=== PATIENT | male | born 1990 | race Caucasian/White ===

== ENCOUNTER 2019-04-08 21:39 | Emergency (ER) | payer OTHER ==
[2019-04-08] MEDS ORDERED: SODIUM CHLORIDE 0.9% 1,000 ML IV STA (21:43)
--- NOTE | 2019-04-08 21:44 | ED ---
Seizure HPI - General Stated Complaint: Seizure Time Seen by Provider: 04/08/19 21:42 - History of Present Illness Initial Comments: Jose is a 28-year-old alcoholic male who presents the emergency department today from [facility] for evaluation of a possible alcohol withdrawal seizure. Patient reports that this is his fifth stay in [place] in the past 2 years. He reports that on his last readmissions he has had seizures due to alcohol withdrawal on his last day receiving Ativan. Patient states that today was his last day to receive Ativan, he did not get any meds at than normal afternoon vacation administration time. He reports that around 7 PM he began feeling odd he began feeling like he was shaky and his [place]field ds were spasming. He alerted the nurse who told him that his vital signs were normal and there is nothing further to do. He then began feeling worse was sitting in a chair when he began to feel like he was can have a seizure his friend lowered him to the ground place a sweatshirt under his head and patient was told that he then had a seizure. He didn't have any loss of bowel or bladder continence. Patient members waking up with staff around him and being told that he had a seizure. Patient states this is typical for him when he is withdrawing from alcohol. Patient denies any other acute complaints. - Related Data Home Medications Medication Instructions Recorded Confirmed Acetaminophen Tab [Tylenol Tab] 650 mg PO Q4H PRN 04/08/19 04/08/19 Calcium/Magnesium 2 tab PO TID PRN 04/08/19 04/08/19 Chlorpheniramine Maleate 4 mg PO Q4H PRN 04/08/19 04/08/19 [Chlor-Trimeton] Ibuprofen [Motrin] 600 mg PO Q6H PRN 04/08/19 04/08/19 LORazepam [Ativan] 1 mg PO ONCE PRN 04/08/19 04/08/19 Multivitamins, Thera [Multivitamin 1 tab PO DAILY 04/08/19 04/08/19 (formulary)] Ondansetron HCl [Zofran] 8 mg PO Q6H PRN 04/08/19 04/08/19 Ondansetron [Zofran] 4 mg IM Q6H 04/08/19 04/08/19 Thiamine [Vitamin B-1] 100 mg PO DAILY 04/08/19 04/08/19 Tigan 200mg 200 mg IM Q6H PRN 04/08/19 04/08/19 Trimethobenzamide [Tigan] 300 mg PO Q6H PRN 04/08/19 04/08/19 traZODone HCL 50 - 150 mg PO HS 04/08/19 04/08/19 Allergies Allergy/AdvReac Type Severity Reaction Status Date / Time No Known Allergies Allergy Verified 04/08/19 21:53 Review of Systems ROS Statement: Those systems with pertinent positive or pertinent negative responses have been documented in the HPI. ROS Other: All systems not noted in ROS Statement are negative. Past Medical History Additional Past Medical History / Comment(s): Alcohol abuse, alcoholic liver disease General Exam - General Exam Comments Initial Comments: Physical Exam GENERAL: Patient is well-developed and well-nourished. Patient is nontoxic and well- hydrated and is in no distress. HENT: Normocephalic, Atraumatic. EYES: PERRL, EOMI PULMONARY: Unlabored respirations. No audible rales rhonchi or wheezing was noted. CARDIOVASCULAR: There is a regular rate and rhythm without any murmurs gallops or rubs. ABDOMEN: Soft and nontender with normal bowel sounds. SKIN: Skin is clear with no lesions or rashes and otherwise unremarkable. : Deferred NEUROLOGIC: Patient is alert and oriented x3. Moving all extremities spontaneously MUSCULOSKELETAL: Normal extremities with adequate strength and full range of motion. No lower extremity swelling or edema. No calf tenderness. PSYCHIATRIC: Normal psychiatric evaluation. Limitations: no limitations Course Vital Signs 04/08/19 04/08/19 04/08/19 21:45 22:00 22:30 Temperature 98.4 F Pulse Rate 92 99 76 Respiratory 18 20 18 Rate Blood Pressure 119/97 119/97 126/79 O2 Sat by Pulse 98 98 98 Oximetry Medical Decision Making - Medical Decision Making Patient was seen and evaluated history was obtained from the patient This is an alcoholic male with a history of alcohol withdrawal seizures curren tly being treated for alcohol withdrawal [facility]. Patient reports not getting a dose of Ativan this afternoon and subsequently feeling very shaky. Patient recalls his seizure activity. On physical exam the patient is very well-appearing, not tremulous, not hypertensive, had no loss of bowel or bladder continence with the seizure-like activity he reports. I will give the patient a dose of Librium here Labs are reviewed, transaminitis consistent with chronic liver disease of alcohol abuse patient was stable throughout the emergency department stay. No seizure activity. Patient's comfortable with plan for discharge back to [place] this time. - Lab Data Result diagrams: 04/08/19 21:56 04/08/19 21:56 Lab Results 04/08/19 04/08/19 04/08/19 Range/Units 21:56 21:56 22:05 WBC 6.2 (3.8-10.6) k/uL RBC 3.92 L (4.30-5.90) m/uL Hgb 13.9 (13.0-17.5) gm/dL Hct 41.7 (39.0-53.0) % MCV 106.4 H (80.0-100.0) fL MCH 35.4 H (25.0-35.0) pg MCHC 33.3 (31.0-37.0) g/dL RDW 14.6 (11.5-15.5) % Plt Count 201 (150-450) k/uL Neutrophils % 61 % Lymphocytes % 27 % Monocytes % 7 % Eosinophils % 2 % Basophils % 1 % Neutrophils # 3.8 (1.3-7.7) k/uL Lymphocytes # 1.7 (1.0-4.8) k/uL Monocytes # 0.5 (0-1.0) k/uL Eosinophils # 0.1 (0-0.7) k/uL Basophils # 0.1 (0-0.2) k/uL Macrocytosis Moderate Sodium 139 (137-145) mmol/L Potassium 4.8 (3.5-5.1) mmol/L Chloride 104 (98-107) mmol/L Carbon Dioxide 26 (22-30) mmol/L Anion Gap 9 mmol/L BUN 11 (9-20) mg/dL Creatinine 0.67 (0.66-1.25) mg/dL Est GFR (CKD-EPI)AfAm >90 (>60 ml/min/1.73 sqM) Est GFR (CKD-EPI)NonAf >90 (>60 ml/min/1.73 sqM) Glucose 94 (74-99) mg/dL Calcium 10.3 H (8.4-10.2) mg/dL Total Bilirubin 0.8 (0.2-1.3) mg/dL AST 116 H (17-59) U/L ALT 115 H (21-72) U/L Alkaline Phosphatase 200 H (38-126) U/L Total Protein 7.7 (6.3-8.2) g/dL Albumin 4.8 (3.5-5.0) g/dL Urine Color Light Yellow Urine Appearance Clear (Clear) Urine pH 6.5 (5.0-8.0) Ur Specific [place] 1.011 (1.001-1.035) Urine Protein Negative (Negative) Urine Glucose (UA) Negative (Negative) Urine Ketones 1+ H (Negative) Urine Blood Negative (Negative) Urine Nitrite Negative (Negative) Urine Bilirubin Negative (Negative) Urine Urobilinogen <2.0 (<2.0) mg/dL Ur Leukocyte Esterase Negative (Negative) Urine Opiates Screen Not Detected (NotDetected) Ur Oxycodone Screen Not Detected (NotDetected) Urine Methadone Screen Not Detected (NotDetected) Ur Propoxyphene Screen Not Detected (NotDetected) Ur Barbiturates Screen Not Detected (NotDetected) U Tricyclic Antidepress Not Detected (NotDetected) Ur Phencyclidine Scrn Not Detected (NotDetected) Ur Amphetamines Screen Not Detected (NotDetected) U Methamphetamines Scrn Not Detected (NotDetected) U Benzodiazepines Scrn Detected H (NotDetected) Urine Cocaine Screen Not Detected (NotDetected) U Marijuana (THC) Screen Detected H (NotDetected) Disposition Clinical Impression: Alcohol withdrawal Disposition: HOME SELF-CARE Condition: Stable Instructions (If sedation given, give patient instructions): Alcohol Withdrawal (DC) Is patient prescribed a controlled substance at d/c from ED?: No Referrals: None,Stated [Primary Care Provider] - 1-2 days
[2019-04-08 21:53] VITALS: RESP 18
[2019-04-08] MEDS ORDERED: chlordiazePOXIDE 25 MG CAP PO STA (21:58)
[2019-04-08 22:05] LABS: Basophils # (A) 0.1 k/uL (0-0.2); Basophils % (A) 1 %; Eosinophils # (A) 0.1 k/uL (0-0.7); Eosinophils % (A) 2 %; HCT 41.7 % (39.0-53.0); HGB 13.9 gm/dL (13.0-17.5); Lymphocytes # (A) 1.7 k/uL (1.0-4.8); Lymphocytes % (A) 27 %; MCH 35.4 pg (25.0-35.0); MCHC 33.3 g/dL (31.0-37.0); MCV 106.4 fL (80.0-100.0); Macrocytosis Moderate; Mean Platelet Volume 7.9; Monocytes # (A) 0.5 k/uL (0-1.0); Monocytes % (A) 7 %; Neutrophils # (A) 3.8 k/uL (1.3-7.7); Neutrophils % (A) 61 %; Platelet Count 201 k/uL (150-450); RBC 3.92 m/uL (4.30-5.90); RDW 14.6 % (11.5-15.5); WBC 6.2 k/uL (3.8-10.6)
[2019-04-08 22:16] LABS: ALT 115 U/L (21-72); AST 116 U/L (17-59); Albumin 4.8 g/dL (3.5-5.0); Alkaline Phosphatase 200 U/L (38-126); Anion Gap 9 mmol/L; Blood Urea Nitrogen 11 mg/dL (9-20); Calcium 10.3 mg/dL (8.4-10.2); Carbon Dioxide 26 mmol/L (22-30); Chloride 104 mmol/L (98-107); Glucose 94 mg/dL (74-99); Potassium 4.8 mmol/L (3.5-5.1); Sodium 139 mmol/L (137-145); Total Bilirubin 0.8 mg/dL (0.2-1.3); Total Protein 7.7 g/dL (6.3-8.2)
[2019-04-08 22:34] LABS: Appearance,Urine Clear (Clear); Bilirubin,Urine Negative (Negative); Blood,Urine Negative (Negative); Color,Urine Light Yellow; Glucose,Urine (UA) Negative (Negative); Ketones,Urine 1+ (Negative); Leukocyte Esterase,Urine Negative (Negative); Nitrite,Urine Negative (Negative); PH, Urine 6.5 (5.0-8.0); Protein,Urine Negative (Negative); Specific Gravity,Urine 1.011 (1.001-1.035); Urobilinogen,Urine <2.0 mg/dL (<2.0)
[2019-04-08 22:44] LABS: Amphetamine Screen,Urine Not Detected (NotDetected); Barbiturate Screen,Urine Not Detected (NotDetected); Benzodiazepines Screen,Urine Detected (NotDetected); Cocaine Screen,Urine Not Detected (NotDetected); Methadone Screen, Urine Not Detected (NotDetected); Opiate Screen,Urine Not Detected (NotDetected); Oxycodone Screen, Urine Not Detected (NotDetected); Phencyclidine Screen,Urine Not Detected (NotDetected); Tricyclic Antidepressant,Urine Not Detected (NotDetected); Urn Cannabinoid Scrn Detected (NotDetected)
[2019-04-08 23:39] VITALS: BP 125/73; PULSE 81; TEMP 97.8
== END 2019-04-08 23:47 | disposition home or self-care (01) ==
LOC: EC 21:39
DX: F10.239 Alcohol dependence with withdrawal, unspecified (principal); Z79.899 Other long term (current) drug therapy
CPT/HCPCS: 36415; 80053; 80306; 81003; 85025; 93005; 96360; 96361; 99284

== ENCOUNTER 2020-11-08 15:31 | Inpatient (IN) | payer OTHER ==
--- NOTE | 2020-11-08 16:19 | ED ---
Alcohol HPI - General Chief Complaint: Alcohol Stated Complaint: Withdrawl Time Seen by Provider: 11/08/20 15:46 Source: patient Mode of arrival: ambulatory Limitations: no limitations - History of Present Illness Initial Comments: Patient is a 30-year-old male, with history of alcohol abuse, presenting to the emergency department for alcohol intoxication. Patient states he tried to check himself into [facility] today but when they checked his breath alcohol it was over 0.4, so they sent him into the ER and states when he is more sober he can be checked in. Patient states that when he left [facility] he did go home and drink more vodka. He states he usually drinks about a pint of vodka a day. He denies any other drug use, he smokes about half a pack a day. He denies any chest pain or shortness of breath, no abdominal pain and no nausea or vomiting at this time. Patient has a boot on his left foot secondary to a fracture of his left foot x 1 month ago. He denies any suicidal or homicidal thoughts. Patient has no further complaints at this time. Upon arrival to the ER, he has tachycardia, otherwise vitals are normal. - Related Data Home Medications Medication Instructions Recorded Confirmed Thiamine [Vitamin B-1] 100 mg PO DAILY 04/08/19 11/08/20 Folic Acid 1 mg PO DAILY 11/08/20 11/08/20 Ibuprofen [Motrin] 600 mg PO Q6H PRN 11/08/20 11/08/20 Ondansetron HCl [Zofran] 4 mg PO Q8H PRN 11/08/20 11/08/20 levETIRAcetam [Keppra] 1,000 mg PO BID 11/08/20 11/08/20 Allergies Allergy/AdvReac Type Severity Reaction Status Date / Time No Known Allergies Allergy Verified 11/08/20 18:06 Review of Systems ROS Statement: Those systems with pertinent positive or pertinent negative responses have been documented in the HPI. ROS Other: All systems not noted in ROS Statement are negative. Past Medical History Additional Past Medical History / Comment(s): Alcohol abuse, alcoholic liver disease History of Any Multi-Drug Resistant Organisms: None Reported Past Surgical History: Orthopedic Surgery Past Psychological History: Anxiety, Depression Smoking Status: Current every day smoker Past Alcohol Use History: Abuse, Daily, Heavy Past Drug Use History: Marijuana General Exam - General Exam Comments Initial Comments: GENERAL: Patient is nontoxic and in no acute distress, he appears intoxicated. HEAD: Atraumatic, normocephalic. EYES: Pupils equal round and reactive to light, extraocular movements intact, sclera anicteric, conjunctiva are normal. Eyelids were unremarkable. ENT: TMs normal, nares patent, oropharynx clear without exudates. Moist mucous mem branes. NECK: Normal range of motion, supple without lymphadenopathy or JVD. LUNGS: Unlabored respirations. Breath sounds clear to auscultation bilaterally and equal. No wheezes rales or rhonchi. HEART: Regular rate and rhythm without murmurs, rubs or gallops. ABDOMEN: Soft, nontender, normoactive bowel sounds. No guarding, no rebound. No masses appreciated. : Deferred MUSCULOSKELETAL: Patient has a boot on the left foot secondary to a heel fracture 1 month. Normal extremities with adequate strength and normal range of motion, no pitting or edema. No clubbing or cyanosis. NEUROLOGICAL: Patient is alert and oriented x 3. Motor and sensory are also intact. Cranial nerves II through XII grossly intact. Symmetrical smile. Normal speech, normal gait. PSYCH: Normal mood, normal affect. Appears intoxicated. SKIN: Warm, Dry, normal turgor, no rashes or lesions noted. Limitations: no limitations Course Vital Signs 11/08/20 11/08/20 15:33 18:54 Temperature 98.4 F Pulse Rate 130 H 89 Respiratory 18 18 Rate Blood Pressure 123/77 132/86 O2 Sat by Pulse 97 99 Oximetry Medical Decision Making - Medical Decision Making Patient is a 30-year-old male here for alcohol intoxication. He went to check in at [facility] today and was turned away secondary to being over the limit. He did go home after leaving [place] and drink more alcohol before arriving to the ER. He has tachycardia upon arrival, rest of vitals are normal. Appeared to be highly intoxicated. He is accompanied by his fiance. Patient's labs are stable, his urine tox screen is positive for benzos and m arijuana. His serum alcohol is 414. Patient does have history of seizures, he states he's also be on Keppra however does not take this regularly. He states he was told not to take it when he was drinking so he barely ever takes it. Patient will be admitted, accepted by Dr. Mckenzie. [facility] protocol in place. Case discussed with Dr. Blackmon. - Lab Data Result diagrams: 11/08/20 16:20 11/08/20 16:20 Lab Results 11/08/20 11/08/20 11/08/20 Range/Units 16:20 16:20 16:20 WBC 6.2 (3.8-10.6) k/uL RBC 4.18 L (4.30-5.90) m/uL Hgb 14.9 (13.0-17.5) gm/dL Hct 44.1 (39.0-53.0) % MCV 105.5 H (80.0-100.0) fL MCH 35.6 H (25.0-35.0) pg MCHC 33.8 (31.0-37.0) g/dL RDW 13.4 (11.5-15.5) % Plt Count 470 H (150-450) k/uL MPV 6.4 Neutrophils % 41 % Lymphocytes % 47 % Monocytes % 6 % Eosinophils % 1 % Basophils % 2 % Neutrophils # 2.5 (1.3-7.7) k/uL Lymphocytes # 2.9 (1.0-4.8) k/uL Monocytes # 0.3 (0-1.0) k/uL Eosinophils # 0.1 (0-0.7) k/uL Basophils # 0.2 (0-0.2) k/uL Macrocytosis Slight Sodium 145 (137-145) mmol/L Potassium 4.2 (3.5-5.1) mmol/L Chloride 104 (98-107) mmol/L Carbon Dioxide 24 (22-30) mmol/L Anion Gap 17 mmol/L BUN 6 L (9-20) mg/dL Creatinine 0.70 (0.66-1.25) mg/dL Est GFR (CKD-EPI)AfAm >90 (>60 ml/min/1.73 sqM) Est GFR (CKD-EPI)NonAf >90 (>60 ml/min/1.73 sqM) Glucose 153 H (74-99) mg/dL Calcium 9.8 (8.4-10.2) mg/dL Total Bilirubin 0.6 (0.2-1.3) mg/dL AST 76 H (17-59) U/L ALT 43 (4-49) U/L Alkaline Phosphatase 184 H (38-126) U/L Total Protein 8.7 H (6.3-8.2) g/dL Albumin 5.1 H (3.5-5.0) g/dL Urine Opiates Screen Not Detected (NotDetected) Ur Oxycodone Screen Not Detected (NotDetected) Urine Methadone Screen Not Detected (NotDetected) Ur Propoxyphene Screen Not Detected (NotDetected) Ur Barbiturates Screen Not Detected (NotDetected) U Tricyclic Antidepress Not Detected (NotDetected) Ur Phencyclidine Scrn Not Detected (NotDetected) Ur Amphetamines Screen Not Detected (NotDetected) U Methamphetamines Scrn Not Detected (NotDetected) U Benzodiazepines Scrn Detected H (NotDetected) Urine Cocaine Screen Not Detected (NotDetected) U Marijuana (THC) Screen Detected H (NotDetected) Serum Alcohol 414 H* mg/dL Disposition Clinical Impression: Alcoholic intoxication Disposition: ADMITTED IP TO [facility] Condition: Stable Is patient prescribed a controlled substance at d/c from ED?: No Decision Date: 11/08/20 Decision Time: 17:31
[2020-11-08 16:43] LABS: Basophils # (A) 0.2 k/uL (0-0.2); Basophils % (A) 2 %; Eosinophils # (A) 0.1 k/uL (0-0.7); Eosinophils % (A) 1 %; HCT 44.1 % (39.0-53.0); HGB 14.9 gm/dL (13.0-17.5); Lymphocytes # (A) 2.9 k/uL (1.0-4.8); Lymphocytes % (A) 47 %; MCH 35.6 pg (25.0-35.0); MCHC 33.8 g/dL (31.0-37.0); MCV 105.5 fL (80.0-100.0); Macrocytosis Slight; Mean Platelet Volume 6.4; Monocytes # (A) 0.3 k/uL (0-1.0); Monocytes % (A) 6 %; Neutrophils # (A) 2.5 k/uL (1.3-7.7); Neutrophils % (A) 41 %; Platelet Count 470 k/uL (150-450); RBC 4.18 m/uL (4.30-5.90); RDW 13.4 % (11.5-15.5); WBC 6.2 k/uL (3.8-10.6)
[2020-11-08] MEDS ORDERED: IBUPROFEN 600 MG TAB PO PRN (16:50)
[2020-11-08 16:52] LABS: Amphetamine Screen,Urine Not Detected (NotDetected); Barbiturate Screen,Urine Not Detected (NotDetected); Benzodiazepines Screen,Urine Detected (NotDetected); Cocaine Screen,Urine Not Detected (NotDetected); Methadone Screen, Urine Not Detected (NotDetected); Opiate Screen,Urine Not Detected (NotDetected); Oxycodone Screen, Urine Not Detected (NotDetected); Phencyclidine Screen,Urine Not Detected (NotDetected); Tricyclic Antidepressant,Urine Not Detected (NotDetected); Urn Cannabinoid Scrn Detected (NotDetected)
[2020-11-08 16:53] LABS: ALT 43 U/L (4-49); AST 76 U/L (17-59); African American GFR (CKD) >90 (>60 ml/min/1.73 sqM); Albumin 5.1 g/dL (3.5-5.0); Alkaline Phosphatase 184 U/L (38-126); Anion Gap 17 mmol/L; Blood Urea Nitrogen 6 mg/dL (9-20); Calcium 9.8 mg/dL (8.4-10.2); Carbon Dioxide 24 mmol/L (22-30); Chloride 104 mmol/L (98-107); Glucose 153 mg/dL (74-99); Non-African American GFR(CKD) >90 (>60 ml/min/1.73 sqM); Potassium 4.2 mmol/L (3.5-5.1); Sodium 145 mmol/L (137-145); Total Bilirubin 0.6 mg/dL (0.2-1.3); Total Protein 8.7 g/dL (6.3-8.2)
[2020-11-08 17:21] LABS: Alcohol 414 mg/dL
[2020-11-08] MEDS ORDERED: LORazepam 2 MG/ML INJ IV PRN ×3 (17:27)
[2020-11-08] MEDS ORDERED: THIAMINE 100 MG/ML 2 ML VIAL IM STA (17:27)
[2020-11-08] MEDS ORDERED: NALOXONE 0.4 MG/ML 1 ML VIAL IV PRN ×2 (17:29)
[2020-11-08] MEDS ORDERED: PROMETHAZINE 25 MG TAB PO PRN (17:29)
[2020-11-08] MEDS ORDERED: PROCHLORPERAZINE 5 MG TAB PO PRN (17:29)
[2020-11-08] MEDS ORDERED: ONDANSETRON 4 MG/2 ML VIAL IVP PRN (17:29)
[2020-11-08] MEDS: SODIUM CHLORIDE 0.9% 1,000 ML IV SCH (18:00)
[2020-11-08] MEDS ORDERED: ONDANSETRON ODT 4 MG TAB PO STA (18:11)
[2020-11-08] MEDS ORDERED: LORazepam 1 MG TAB PO STA (18:13)
--- NOTE | 2020-11-08 18:29 | P.HPIM ---
History of Present Illness H&P Date: 11/08/20 Chief Complaint: alcohol withdrawal 30 year old man with alcohol abuse disorder, hx of seizures related to ZULEIMA, marijuana use presented with alcohol intoxication requesting detox. Patient was in communication with [facility] for rehab, but he was intoxicated and was advised that he would not be admitted for rehab until he was sober, so he returned home and drank more alcohol prior to presenting to the ER with request for detox. Patient currently reports anxiety, tremulousness, chills, nausea. Denies chest pain, palps, fevers, abdominal pain, dysuria, dyschezia, rash. Review of Systems All Systems reviewed and pertinent positives and negatives listed in HPI, all other symptoms are negative. Past Medical History Additional Past Medical History / Comment(s): Alcohol abuse, alcoholic liver disease History of Any Multi-Drug Resistant Organisms: None Reported Past Surgical History: Orthopedic Surgery Past Psychological History: Anxiety, Depression Smoking Status: Current every day smoker Past Alcohol Use History: Abuse, Daily, Heavy Past Drug Use History: Marijuana Medications and Allergies Home Medications Medication Instructions Recorded Confirmed Type Thiamine [Vitamin B-1] 100 mg PO DAILY 04/08/19 11/08/20 History Folic Acid 1 mg PO DAILY 11/08/20 11/08/20 History Ibuprofen [Motrin] 600 mg PO Q6H PRN 11/08/20 11/08/20 History Ondansetron HCl [Zofran] 4 mg PO Q8H PRN 11/08/20 11/08/20 History levETIRAcetam [Keppra] 1,000 mg PO BID 11/08/20 11/08/20 History Allergies Allergy/AdvReac Type Severity Reaction Status Date / Time No Known Allergies Allergy Verified 11/08/20 18:06 Physical Exam Osteopathic Statement: *. No significant issues noted on an osteopathic structural exam other than those noted in the History and Physical/Consult. Vitals: Vital Signs Temp Pulse Resp BP Pulse Ox 11/08/20 15:33 98.4 F 130 H 18 123/77 97 Intake and Output 11/08/20 11/08/20 11/08/20 06:59 14:59 22:59 Other: Weight 70.307 kg Gen: awake, alert HEENT: moist mucous membranes, good hearing acuity, normocephalic, atraumatic Resp: breathing comfortably without accessory muscle use CVS: perfusing all extremities well GI: ND, NTTP : No SPT, no CVAT, no roberts catheter MSK: left leg in cast and boot, no clubbing, no pitting edema Neuro: non-focal, no sensory deficits, +tremulous Psych: cooperative, euthymic mood Results CBC & Chem 7: 11/08/20 16:20 12 16:20 Labs: Abnormal Lab Results - Last 24 Hours (Table) 11/08/20 11/08/20 11/08/20 Range/Units 16:20 16:20 16:20 RBC 4.18 L (4.30-5.90) m/uL MCV 105.5 H (80.0-100.0) fL MCH 35.6 H (25.0-35.0) pg Plt Count 470 H (150-450) k/uL BUN 6 L (9-20) mg/dL Glucose 153 H (74-99) mg/dL AST 76 H (17-59) U/L Alkaline Phosphatase 184 H (38-126) U/L Total Protein 8.7 H (6.3-8.2) g/dL Albumin 5.1 H (3.5-5.0) g/dL U Benzodiazepines Scrn Detected H (NotDetected) U Marijuana (THC) Screen Detected H (NotDetected) Serum Alcohol 414 H* mg/dL Assessment and Plan Assessment: 1. Alcohol Withdrawal Syndrome 2. Alcohol Intoxication 3. Alcohol Abuse Disorder 4. Marijuana Use 5. History of Seizures 6. Left Foot Fracture 30 year old man with AUD, marijuana use, Hx of seizures presented for ZULEIMA. Plan: - admit to observation, tele - CIWA + Ativan PRN - nausea control - regular diet - thiamine/folate/MVI - tylenol PRN for pain control - continue home meds including keppra Full Code Patient to discharge to [facility] in the morning.
[2020-11-09] MEDS: SODIUM CHLORIDE 0.9% 1,000 ML IV SCH ×4 (03:01→20:12)
[2020-11-09] MEDS: ONDANSETRON 4 MG/2 ML VIAL IVP PRN ×2 (05:58→16:45)
[2020-11-09 07:35] LABS: Basophils # (A) 0.1 k/uL (0-0.2); Basophils % (A) 1 %; Eosinophils # (A) 0.2 k/uL (0-0.7); Eosinophils % (A) 3 %; HCT 40.2 % (39.0-53.0); HGB 13.6 gm/dL (13.0-17.5); Lymphocytes # (A) 1.8 k/uL (1.0-4.8); Lymphocytes % (A) 36 %; MCH 35.7 pg (25.0-35.0); MCHC 33.8 g/dL (31.0-37.0); MCV 105.8 fL (80.0-100.0); Macrocytosis Slight; Mean Platelet Volume 6.3; Monocytes # (A) 0.4 k/uL (0-1.0); Monocytes % (A) 8 %; Neutrophils # (A) 2.4 k/uL (1.3-7.7); Neutrophils % (A) 50 %; Platelet Count 378 k/uL (150-450); WBC 4.9 k/uL (3.8-10.6)
[2020-11-09] MEDS: THIAMINE 100 MG TAB PO SCH ×2 (08:41→16:45)
[2020-11-09 11:00] LABS: African American GFR (CKD) 144.7 (60.0-200.0); Anion Gap 6.7 mmol/L (4.00-12.00); BUN/Creat Ratio 11.43 Ratio (12.00-20.00); Calcium 9.3 mg/dL (8.7-10.3); Carbon Dioxide 29.3 mmol/L (21.6-31.8); Magnesium 1.5 mg/dL (1.5-2.4); Non-African American GFR(CKD) 124.9 (60.0-200.0)
--- NOTE | 2020-11-09 11:18 | P.PN ---
Subjective Progress Note Date: 11/09/20 Pt seen at bedside today, resting comfortably. Rec'd 2mg of ativan this morning prior to my visit with good response. Objective - Vital Signs Vital signs: Vital Signs Temp 98.0 F 11/09/20 08:00 Pulse 81 11/09/20 08:00 Resp 18 11/09/20 08:00 BP 135/81 11/09/20 08:00 Pulse Ox 99 11/09/20 08:00 Intake & Output 11/08/20 11/09/20 11/09/20 18:59 06:59 18:59 Intake Total 200 Balance 200 Weight 70.307 kg 70.307 kg Intake: Oral 200 Other: Voiding Method Toilet Toilet # Voids 0 0 - Exam Gen: awake, alert HEENT: moist mucous membranes, good hearing acuity, normocephalic, atraumatic Resp: breathing comfortably without accessory muscle use CVS: perfusing all extremities well GI: ND, NTTP : No SPT, no CVAT, no roberts catheter MSK: left leg in cast and boot, no clubbing, no pitting edema Neuro: non-focal, no sensory deficits, +tremulous Psych: cooperative, euthymic mood - Labs CBC & Chem 7: 11/09/20 07:13 11/09/20 07:13 Labs: Abnormal Lab Results - Last 24 Hours (Table) 11/08/20 11/08/20 11/08/20 Range/Units 16:20 16:20 16:20 RBC 4.18 L (4.30-5.90) m/uL MCV 105.5 H (80.0-100.0) fL MCH 35.6 H (25.0-35.0) pg Plt Count 470 H (150-450) k/uL BUN 6 L (9-20) mg/dL BUN/Creatinine Ratio (12.00-20.00) Ratio Glucose 153 H (74-99) mg/dL AST 76 H (17-59) U/L Alkaline Phosphatase 184 H (38-126) U/L Total Protein 8.7 H (6.3-8.2) g/dL Albumin 5.1 H (3.5-5.0) g/dL U Benzodiazepines Scrn Detected H (NotDetected) U Marijuana (THC) Screen Detected H (NotDetected) Serum Alcohol 414 H* mg/dL 11/09/20 11/09/20 Range/Units 07:13 07:13 RBC 3.80 L (4.30-5.90) m/uL MCV 105.8 H (80.0-100.0) fL MCH 35.7 H (25.0-35.0) pg Plt Count (150-450) k/uL BUN 8.0 L (9-20) mg/dL BUN/Creatinine Ratio 11.43 L (12.00-20.00) Ratio Glucose (74-99) mg/dL AST (17-59) U/L Alkaline Phosphatase (38-126) U/L Total Protein (6.3-8.2) g/dL Albumin (3.5-5.0) g/dL U Benzodiazepines Scrn (NotDetected) U Marijuana (THC) Screen (NotDetected) Serum Alcohol mg/dL Assessment and Plan Assessment: 1. Alcohol Withdrawal Syndrome 2. Alcohol Intoxication 3. Alcohol Abuse Disorder 4. Marijuana Use 5. History of Seizures 6. Left Foot Fracture 30 year old man with AUD, marijuana use, Hx of seizures presented for ZULEIMA. Plan: - admit to observation, tele - CIWA + Ativan PRN - nausea control - regular diet - thiamine/folate/MVI - tylenol PRN for pain control - continue home meds including keppra Full Code
[2020-11-09] MEDS: chlordiazePOXIDE 25 MG CAP PO SCH ×2 (16:45→22:43)
[2020-11-10] MEDS: SODIUM CHLORIDE 0.9% 1,000 ML IV SCH ×2 (03:34→11:02)
[2020-11-10] MEDS: THIAMINE 100 MG TAB PO SCH (07:46)
[2020-11-10] MEDS: ONDANSETRON 4 MG/2 ML VIAL IVP PRN (07:46)
[2020-11-10] MEDS: chlordiazePOXIDE 25 MG CAP PO SCH (07:46)
[2020-11-10 09:28] VITALS: BP 137/89; PULSE 52; RESP 16; TEMP 98.4
--- NOTE | 2020-11-10 12:36 | P.DS ---
Providers Date of admission: 11/09/20 12:31 Expected date of discharge: 11/10/20 Attending physician: Norma Mckenzie MD Primary care physician: Physician Nonstaff Hospital Course: 1. Alcohol Withdrawal Syndrome 2. Alcohol Intoxication 3. Alcohol Abuse Disorder 4. Marijuana Use 5. History of Seizures 6. Left Foot Fracture 30 year old man with AUD, marijuana use, Hx of seizures presented for ZULEIMA. He was watched ovre 48 hours and his withdrawal symptoms were well controlled with benzos. Patient had already lined up a rehab program through [place], who picked him up from the hospital to take to residential level rehab. He was prescribed a tapering dose of librium to take during rehab. Also prescribed thiamine/folate. Patient will follow up with his PCP following rehab as needed. Assessment: Gen: awake, alert HEENT: moist mucous membranes, good hearing acuity, normocephalic, atraumatic Resp: breathing comfortably without accessory muscle use CVS: perfusing all extremities well GI: ND, NTTP : No SPT, no CVAT, no roberts catheter MSK: left leg in cast and boot, no clubbing, no pitting edema Neuro: non-focal, no sensory deficits, +tremulous Psych: cooperative, euthymic mood Patient Condition at Discharge: Stable Plan - Discharge Summary New Discharge Prescriptions: New chlordiazePOXIDE HCl [Librium] 25 mg PO TID #0 cap Continue Thiamine [Vitamin B-1] 100 mg PO DAILY levETIRAcetam [Keppra] 1,000 mg PO BID Folic Acid 1 mg PO DAILY Ondansetron HCl [Zofran] 4 mg PO Q8H PRN PRN Reason: Nausea And Vomiting Ibuprofen [Motrin] 600 mg PO Q6H PRN PRN Reason: Pain Discharge Medication List Thiamine [Vitamin B-1] 100 mg PO DAILY 04/08/19 [History] Folic Acid 1 mg PO DAILY 11/08/20 [History] Ibuprofen [Motrin] 600 mg PO Q6H PRN 11/08/20 [History] Ondansetron HCl [Zofran] 4 mg PO Q8H PRN 11/08/20 [History] levETIRAcetam [Keppra] 1,000 mg PO BID 11/08/20 [History] chlordiazePOXIDE HCl [Librium] 25 mg PO TID #0 cap 12/12/20 [Rx] Follow up Appointment(s)/Referral(s): Nonstaff,Physician [Primary Care Provider] - 1-2 days
== END 2020-11-10 14:00 | DRG 897 ==
LOC: EC 15:31 → 5NMEDONC 17:31 → OBSVTOIN 11-09 12:31
PROVIDERS: ADMIT Internal Medicine; ATTEND Internal Medicine
DX: F10.239 Alcohol dependence with withdrawal, unspecified (principal); F10.229 Alcohol dependence with intoxication, unspecified; K70.9 Alcoholic liver disease, unspecified; R56.9 Unspecified convulsions; Y90.8 Blood alcohol level of 240 mg/100 ml or more; F32.9 Major depressive disorder, single episode, unspecified; F41.9 Anxiety disorder, unspecified; S92.002D Unspecified fracture of left calcaneus, subsequent encounter for fracture with routine healing; F17.210 Nicotine dependence, cigarettes, uncomplicated; Z71.6 Tobacco abuse counseling
CPT/HCPCS: 36415; 80048; 80053; 80306; 80320; 83735; 85025; 96372; 99285

== ENCOUNTER 2021-01-07 22:37 | Emergency (ER) | payer OTHER ==
[2021-01-07 22:43] VITALS: TEMP 98.8
--- NOTE | 2021-01-07 23:15 | ED ---
Psych HPI - General Source: patient Mode of arrival: ambulatory - History of Present Illness MD Complaint: suicidal ideation, feels depressed Onset/Timin -: week(s) Associated Psychiatric Symptoms: depression, suicidal ideation History of same: Yes Quality: getting worse Improves With: none Worsens With: none Context: recent alcohol abuse Associated Symptoms: denies other symptoms <Christian Valencia - Last Filed: 01/07/21 23:12> <Thanh Matute - Last Filed: 01/08/21 09:01> - General Chief Complaint: Psychiatric Symptoms Stated Complaint: Mental health Time Seen by Provider: 01/07/21 22:45 - History of Present Illness Initial Comments: This patient is a 30-year-old man who states that he has history of underlying depression and that his mood has been worsening over the past couple weeks and he has also been considering self-harm. (Christian Valencia) - Related Data Home Medications Medication Instructions Recorded Confirmed Ondansetron HCl [Zofran] 4 mg PO Q8H PRN 11/08/20 01/08/21 levETIRAcetam [Keppra] 1,000 mg PO BID 11/08/20 01/08/21 Allergies Allergy/AdvReac Type Severity Reaction Status Date / Time No Known Allergies Allergy Verified 01/08/21 07:32 Review of Systems ROS Other: All systems not noted in ROS Statement are negative. Constitutional: Denies: fever, chills Respiratory: Denies: cough, dyspnea Cardiovascular: Denies: chest pain, palpitations, edema Gastrointestinal: Denies: abdominal pain, nausea, vomiting, diarrhea Genitourinary: Denies: dysuria, hematuria Musculoskeletal: Denies: back pain Skin: Denies: rash Neurological: Denies: headache, weakness, numbness <Christian Valencia - Last Filed: 01/07/21 23:12> ROS Other: All systems not noted in ROS Statement are negative. <Thanh Matute - Last Filed: 01/08/21 09:01> ROS Statement: Those systems with pertinent positive or pertinent negative responses have been documented in the HPI. Past Medical History Past Medical History: Seizure Disorder Additional Past Medical History / Comment(s): Alcohol abuse, alcoholic liver disease History of Any Multi-Drug Resistant Organisms: None Reported Past Surgical History: Orthopedic Surgery Past Anesthesia/Blood Transfusion Reactions: No Reported Reaction Past Psychological History: Anxiety, Depression Smoking Status: Current every day smoker Past Alcohol Use History: Abuse, Daily, Heavy Past Drug Use History: Marijuana <Christian Valencia - Last Filed: 01/07/21 23:12> General Exam Limitations: no limitations General appearance: alert, in no apparent distress Head exam: Present: atraumatic, normocephalic Eye exam: Present: normal appearance. Absent: scleral icterus, conjunctival injection ENT exam: Present: normal oropharynx Neck exam: Present: normal inspection Respiratory exam: Present: normal lung sounds bilaterally. Absent: respiratory distress, wheezes, rales, rhonchi, stridor Cardiovascular Exam: Present: regular rate, normal rhythm, normal heart sounds. Absent: systolic murmur, diastolic murmur, rubs, gallop GI/Abdominal exam: Present: soft. Absent: distended, tenderness, guarding, rebound Extremities exam: Present: normal inspection, normal capillary refill. Absent: pedal edema, calf tenderness Back exam: Present: normal inspection Neurological exam: Present: alert Psychiatric exam: Present: depressed, suicidal ideation. Absent: agitated, anxious, flat affect, manic, homicidal ideation Skin exam: Present: warm, dry, intact, normal color. Absent: rash <Christian Valencia - Last Filed: 01/07/21 23:12> Course Vital Signs 01/07/21 01/08/21 22:38 02:00 Temperature 98.8 F Pulse Rate 86 97 Respiratory 18 16 Rate Blood Pressure 116/75 101/71 O2 Sat by Pulse 100 97 Oximetry Medical Decision Making <Thanh Matute - Last Filed: 01/08/21 09:01> - Medical Decision Making Patient seen by mental health services with plan for discharge and follow-up. They did schedule point and for later today. Patient reevaluated by myself. Patient resting comfortably in bed. Patient denies suicidal ideation and does contract for safety. (Thanh Matute) Disposition <Christian Valencia - Last Filed: 01/07/21 23:12> Is patient prescribed a controlled substance at d/c from ED?: No Time of Disposition: 09: <Thanh Matute - Last Filed: 01/08/21 09:01> Clinical Impression: Depression, Alcoholic intoxication Disposition: HOME SELF-CARE Condition: Stable Instructions (If sedation given, give patient instructions): Alcohol Intoxication (ED), Depression (ED), Help Prevent Suicide (ED) Additional Instructions: Please follow-up with primary care physician in the next day or 2 for recheck. Please follow-up with mental health services today as scheduled. Return for thoughts of self-harm, worsening symptoms or other concerns. Avoid alcohol. Referrals: Iain Gamboa [STAFF PHYSICIAN] - 1-2 days
[2021-01-08 02:12] VITALS: RESP 16
[2021-01-08] MEDS ORDERED: ONDANSETRON ODT 4 MG TAB PO STA (09:10)
[2021-01-08 09:17] VITALS: BP 132/81; PULSE 74
== END 2021-01-08 09:16 | disposition home or self-care (01) ==
LOC: EC 22:37
DX: F32.9 Major depressive disorder, single episode, unspecified (principal); F10.129 Alcohol abuse with intoxication, unspecified; Y90.9 Presence of alcohol in blood, level not specified; G40.909 Epilepsy, unspecified, not intractable, without status epilepticus; F17.200 Nicotine dependence, unspecified, uncomplicated; Z79.899 Other long term (current) drug therapy
CPT/HCPCS: 82075; 99285

== ENCOUNTER 2021-02-08 14:05 | Inpatient (IN) | payer OTHER ==
[2021-02-08 15:45] LABS: Basophils # (A) 0.1 k/uL (0-0.2); Basophils % (A) 1 %; Eosinophils # (A) 0.1 k/uL (0-0.7); Eosinophils % (A) 1 %; HCT 44.6 % (39.0-53.0); HGB 15.2 gm/dL (13.0-17.5); Lymphocytes # (A) 2.3 k/uL (1.0-4.8); Lymphocytes % (A) 49 %; MCH 32.9 pg (25.0-35.0); MCV 96.7 fL (80.0-100.0); Mean Platelet Volume 6.8; Monocytes # (A) 0.2 k/uL (0-1.0); Monocytes % (A) 5 %; Neutrophils % (A) 42 %; Platelet Count 153 k/uL (150-450); RBC 4.61 m/uL (4.30-5.90); RDW 14.4 % (11.5-15.5); WBC 4.7 k/uL (3.8-10.6)
[2021-02-08 15:55] LABS: ALT 58 U/L (4-49); AST 92 U/L (17-59); African American GFR (CKD) >90 (>60 ml/min/1.73 sqM); Albumin 4.5 g/dL (3.5-5.0); Alkaline Phosphatase 226 U/L (38-126); Anion Gap 14 mmol/L; Blood Urea Nitrogen 9 mg/dL (9-20); Calcium 8.8 mg/dL (8.4-10.2); Carbon Dioxide 27 mmol/L (22-30); Chloride 104 mmol/L (98-107); Glucose 78 mg/dL (74-99); Magnesium 1.9 mg/dL (1.6-2.3); Non-African American GFR(CKD) >90 (>60 ml/min/1.73 sqM); Phosphorus 3.8 mg/dL (2.5-4.5); Potassium 4.3 mmol/L (3.5-5.1); Sodium 145 mmol/L (137-145); Total Bilirubin 0.5 mg/dL (0.2-1.3); Total Protein 7.6 g/dL (6.3-8.2)
[2021-02-08 16:04] LABS: Alcohol 393 mg/dL; Amphetamine Screen,Urine Not Detected (NotDetected); Barbiturate Screen,Urine Not Detected (NotDetected); Benzodiazepines Screen,Urine Detected (NotDetected); Cocaine Screen,Urine Not Detected (NotDetected); Methadone Screen, Urine Not Detected (NotDetected); Opiate Screen,Urine Not Detected (NotDetected); Oxycodone Screen, Urine Not Detected (NotDetected); Phencyclidine Screen,Urine Not Detected (NotDetected); Tricyclic Antidepressant,Urine Not Detected (NotDetected); Urn Cannabinoid Scrn Detected (NotDetected)
[2021-02-08] MEDS ORDERED: LORazepam 2 MG/ML INJ IV PRN ×2 (16:08)
[2021-02-08] MEDS ORDERED: THIAMINE 100 MG/ML 2 ML VIAL IM STA (16:08)
--- NOTE | 2021-02-08 16:11 | ED ---
Alcohol HPI - General Chief Complaint: Alcohol Stated Complaint: Alcohol Time Seen by Provider: 02/08/21 14:32 Source: patient Mode of arrival: ambulatory Limitations: no limitations - History of Present Illness Initial Comments: 30-year-old male presenting today for chief complaint of alcohol INTOXICATION. PATIENT WAS SENT OVER FOR [facility] THEY STATE THAT THEY CANNOT ACCEPT HIM AT THESE LEVELS PATIENT STATES HE DID DRINK A LOT PRIOR TO GOING. PATIENT DENIES ANY HALLUCINATIONS OR TREMORS HE DENIES ANY PALPITATIONS PATIENT STATES HE FEELS FINE AT THIS TIME HE STATES HE DRINKS THIS MUCH EVERY DAY. - Related Data Home Medications Medication Instructions Recorded Confirmed Levothyroxine Sodium [Synthroid] 25 mcg PO DAILY 02/08/21 02/08/21 Sertraline [Zoloft] 50 mg PO DAILY 02/08/21 02/08/21 Thiamine [Vitamin B-1] 100 mg PO DAILY 02/08/21 02/08/21 levETIRAcetam [Keppra] 1,000 mg PO BID 02/08/21 02/08/21 traZODone HCL 150 mg PO HS 02/08/21 02/08/21 Allergies Allergy/AdvReac Type Severity Reaction Status Date / Time No Known Allergies Allergy Verified 02/08/21 16:29 Review of Systems ROS Statement: Those systems with pertinent positive or pertinent negative responses have been documented in the HPI. ROS Other: All systems not noted in ROS Statement are negative. Past Medical History Past Medical History: Seizure Disorder Additional Past Medical History / Comment(s): Alcohol abuse, alcoholic liver disease History of Any Multi-Drug Resistant Organisms: None Reported Past Surgical History: Orthopedic Surgery Past Anesthesia/Blood Transfusion Reactions: No Reported Reaction Past Psychological History: Anxiety, Depression Smoking Status: Current every day smoker Past Alcohol Use History: Abuse, Daily, Heavy Past Drug Use History: Marijuana General Exam - General Exam Comments Initial Comments: General: The patient is awake and alert, in no distress, and does not appear acutely ill. Smell of alcohol Eye: Pupils are equal, round and reactive to light, extra-ocular movements are intact. No nystagmus. There is normal conjunctiva bilaterally. No signs of icterus. Ears, nose, mouth and throat: There are moist mucous membranes and no oral lesions. Neck: The neck is supple, there is no tenderness or JVD. Cardiovascular: There is a regular rate and rhythm. No murmur, rub or gallop is appreciated. Respiratory: Lungs are clear to auscultation, respirations are non-labored, breath sounds are equal. No wheezes, stridor, rales, or rhonchi. Gastrointestinal: [Soft, non-distended, non-tender abdomen without masses or organomegaly noted. There is no rebound or guarding present. Musculoskeletal: Normal ROM, no tenderness. Strength 5/5. Sensation intact. Pulses equal bilaterally 2+. Neurological: A&O x 3. CN II-XII intact, There are no obvious motor or sensory deficits. Coordination appears grossly intact. Speech is normal. Skin: Skin is warm and dry and no rashes or lesions are noted. Psychiatric: Cooperative Limitations: no limitations Course Vital Signs 02/08/21 02/08/21 02/08/21 14:06 17:00 17:29 Temperature 97.8 F 98.2 F 98.2 F Pulse Rate 85 58 L 58 L Respiratory 18 20 20 Rate Blood Pressure 130/89 120/80 120/80 O2 Sat by Pulse 96 95 95 Oximetry Medical Decision Making - Medical Decision Making Significantly elevated alcohol levels. Patient appears intoxicated. no findings consistent wtih withdrawal at this time. patient placed on [facility] protocols. Dr Mckenzie accepted admission> Dr banks agreeable to admission. - Lab Data Result diagrams: 02/08/21 15:35 02/08/21 15:35 Lab Results 02/08/21 02/08/21 02/08/21 Range/Units 15:35 15:35 15:35 WBC 4.7 (3.8-10.6) k/uL RBC 4.61 (4.30-5.90) m/uL Hgb 15.2 (13.0-17.5) gm/dL Hct 44.6 (39.0-53.0) % MCV 96.7 (80.0-100.0) fL MCH 32.9 (25.0-35.0) pg MCHC 34.0 (31.0-37.0) g/dL RDW 14.4 (11.5-15.5) % Plt Count 153 (150-450) k/uL MPV 6.8 Neutrophils % 42 % Lymphocytes % 49 % Monocytes % 5 % Eosinophils % 1 % Basophils % 1 % Neutrophils # 2.0 (1.3-7.7) k/uL Lymphocytes # 2.3 (1.0-4.8) k/uL Monocytes # 0.2 (0-1.0) k/uL Eosinophils # 0.1 (0-0.7) k/uL Basophils # 0.1 (0-0.2) k/uL Sodium 145 (137-145) mmol/L Potassium 4.3 (3.5-5.1) mmol/L Chloride 104 (98-107) mmol/L Carbon Dioxide 27 (22-30) mmol/L Anion Gap 14 mmol/L BUN 9 (9-20) mg/dL Creatinine 0.59 L (0.66-1.25) mg/dL Est GFR (CKD-EPI)AfAm >90 (>60 ml/min/1.73 sqM) Est GFR (CKD-EPI)NonAf >90 (>60 ml/min/1.73 sqM) Glucose 78 (74-99) mg/dL Calcium 8.8 (8.4-10.2) mg/dL Phosphorus 3.8 (2.5-4.5) mg/dL Magnesium 1.9 (1.6-2.3) mg/dL Total Bilirubin 0.5 (0.2-1.3) mg/dL AST 92 H (17-59) U/L ALT 58 H (4-49) U/L Alkaline Phosphatase 226 H (38-126) U/L Total Protein 7.6 (6.3-8.2) g/dL Albumin 4.5 (3.5-5.0) g/dL Urine Opiates Screen Not Detected (NotDetected) Ur Oxycodone Screen Not Detected (NotDetected) Urine Methadone Screen Not Detected (NotDetected) Ur Propoxyphene Screen Not Detected (NotDetected) Ur Barbiturates Screen Not Detected (NotDetected) U Tricyclic Antidepress Not Detected (NotDetected) Ur Phencyclidine Scrn Not Detected (NotDetected) Ur Amphetamines Screen Not Detected (NotDetected) U Methamphetamines Scrn Not Detected (NotDetected) U Benzodiazepines Scrn Detected H (NotDetected) Urine Cocaine Screen Not Detected (NotDetected) U Marijuana (THC) Screen Detected H (NotDetected) Serum Alcohol 393 H* mg/dL Disposition Clinical Impression: Alcohol intoxication Disposition: ADMITTED IP TO THIS HOSP Condition: Stable Is patient prescribed a controlled substance at d/c from ED?: No Time of Disposition: 16:13 Decision to Admit Reason: Admit from EC Decision Date: 02/08/21 Decision Time: 16:13
[2021-02-08] MEDS ORDERED: NALOXONE 0.4 MG/ML 1 ML VIAL IV PRN (16:59)
[2021-02-08] MEDS: THIAMINE 100 MG TAB PO SCH (17:57)
[2021-02-08] MEDS: SODIUM CHLORIDE 0.9% 1,000 ML IV SCH (18:12)
[2021-02-08] MEDS: LORazepam 2 MG/ML INJ IV PRN (20:59)
[2021-02-08] MEDS: traZODone HCL 50 MG TAB PO SCH (21:46)
[2021-02-08] MEDS: levETIRAcetam 500 MG TAB PO SCH (21:46)
--- NOTE | 2021-02-09 01:00 | P.HPIM ---
History of Present Illness H&P Date: 02/08/21 Chief Complaint: alcohol intoxication 30 year old male with alcohol abuse, history of seizure patient was sent in from [facility], for alcohol intoxication patient is currently intoxicated and unable to provide any meaningful history he does not have any complaints at this time, and wants to be left alone and sleep blood work showed severe alcohol intoxication, and slightly elevated liver enzymes Review of Systems ROS unobtainable: due to mental status Past Medical History Past Medical History: Seizure Disorder Additional Past Medical History / Comment(s): Alcohol abuse, alcoholic liver disease History of Any Multi-Drug Resistant Organisms: None Reported Past Surgical History: Orthopedic Surgery Additional Past Surgical History / Comment(s): right rotator cuff repair Past Anesthesia/Blood Transfusion Reactions: No Reported Reaction Past Psychological History: Anxiety, Depression Smoking Status: Current every day smoker Past Alcohol Use History: Abuse, Daily, Heavy Past Drug Use History: Marijuana - Past Family History Mother Additional Family Medical History / Comment(s): none that he is aware of Father Additional Family Medical History / Comment(s): psoriasis Medications and Allergies Home Medications Medication Instructions Recorded Confirmed Type Levothyroxine Sodium [Synthroid] 25 mcg PO DAILY 02/08/21 02/08/21 History Sertraline [Zoloft] 50 mg PO DAILY 02/08/21 02/08/21 History Thiamine [Vitamin B-1] 100 mg PO DAILY 02/08/21 02/08/21 History levETIRAcetam [Keppra] 1,000 mg PO BID 02/08/21 02/08/21 History traZODone HCL 150 mg PO HS 02/08/21 02/08/21 History Allergies Allergy/AdvReac Type Severity Reaction Status Date / Time No Known Allergies Allergy Verified 02/08/21 16:29 Physical Exam Vitals: Vital Signs Temp Pulse Pulse Resp BP BP BP 02/08/21 19:30 98.1 F 102 H 18 116/73 02/08/21 17:50 97.8 F 76 18 119/80 02/08/21 17:29 98.2 F 58 L 20 120/80 02/08/21 17:00 98.2 F 58 L 20 120/80 02/08/21 14:06 97.8 F 85 18 130/89 Pulse Ox 02/08/21 19:30 99 02/08/21 17:50 100 03/12/21 17:29 95 02/08/21 17:00 95 02/08/21 14:06 96 Intake and Output 02/08/21 02/08/21 02/08/21 06:59 14:59 22:59 Other: Weight 70.307 kg 70.307 kg patient declined physical exam at this time, and became agitated when attempted Results CBC & Chem 7: 02/08/21 15:35 02/08/21 15:35 Labs: Abnormal Lab Results - Last 24 Hours (Table) 02/08/21 02/08/21 Range/Units 15:35 15:35 Creatinine 0.59 L (0.66-1.25) mg/dL AST 92 H (17-59) U/L ALT 58 H (4-49) U/L Alkaline Phosphatase 226 H (38-126) U/L U Benzodiazepines Scrn Detected H (NotDetected) U Marijuana (THC) Screen Detected H (NotDetected) Serum Alcohol 393 H* mg/dL Thrombosis Risk Factor Assmnt - Choose All That Apply Any of the Below Risk Factors Present?: No Other Risk Factors: No Thrombosis Risk Factor Assessment Level: Very Low Risk Assessment and Plan Assessment: acute severe alcohol intoxication alcohol dependance and abuse monitor for alcohol withdrawal syndrome seizure disorder acute alcoholic hepatitis plan resume antiepileptics seizure precautions ivf hydration with normal saline thiamine Benzo per CIWA CODE STATUS:full code DVT prophylaxis: mechaincal Discussed with: Patient, ER Anticipated length of stay > than [address]: [facility] A total of 55 minutes was spent on the care of this complex patient more than 50% of the time was spent in counseling and care coordination.
[2021-02-09] MEDS: SODIUM CHLORIDE 0.9% 1,000 ML IV SCH ×3 (01:09→17:03)
[2021-02-09] MEDS: LORazepam 2 MG/ML INJ IV PRN ×9 (02:06→23:07)
[2021-02-09] MEDS: LEVOTHYROXINE 25 MCG TAB PO SCH (05:48)
[2021-02-09] MEDS: SERTRALINE 50 MG TAB PO SCH (08:04)
[2021-02-09] MEDS: THIAMINE 100 MG TAB PO SCH ×2 (08:04→17:00)
[2021-02-09] MEDS: levETIRAcetam 500 MG TAB PO SCH ×2 (08:04→21:51)
--- NOTE | 2021-02-09 09:00 | P.PN ---
Subjective Progress Note Date: 02/09/21 Patient is not feeling well this morning. He is complaining of nausea but no vomiting. He required one-time dose of Ativan per nursing staff this morning. Objective - Vital Signs Vital signs: Vital Signs Temp 97.5 F L 02/09/21 08:00 Pulse 98 02/09/21 08:00 Resp 18 02/09/21 08:00 BP 129/80 02/09/21 08:00 Pulse Ox 98 02/09/21 08:00 Intake & Output 02/08/21 02/09/21 02/09/21 18:59 06:59 18:59 Weight 70.307 kg Other: Voiding Method Toilet # Voids 2 # Bowel Movements 0 - Exam General: The patient is awake and alert, in no distress Eye: there is normal conjunctiva bilaterally. Neck: The neck is supple, there is no JVD. Cardiovascular: Normal S1-S2, no S3-S4, no murmurs. Respiratory: Lungs clear to auscultation bilaterally Gastrointestinal: Abdomen is soft, nontender Musculoskeletal: There is no pedal edema. Neurological:. Speech is normal. Skin: Skin is warm and dry - Labs CBC & Chem 7: 02/08/21 15:35 02/08/21 15:35 Labs: Abnormal Lab Results - Last 24 Hours (Table) 02/08/21 02/08/21 Range/Units 15:35 15:35 Creatinine 0.59 L (0.66-1.25) mg/dL AST 92 H (17-59) U/L ALT 58 H (4-49) U/L Alkaline Phosphatase 226 H (38-126) U/L U Benzodiazepines Scrn Detected H (NotDetected) U Marijuana (THC) Screen Detected H (NotDetected) Serum Alcohol 393 H* mg/dL Assessment and Plan Assessment: This is a 30-year-old male with past medical history significant for underlying seizure disorder and alcohol abuse who presented to the emergency room with alcohol intoxication. Patient was evaluated in the ER and currently placed in observation for further management. Patient was counseled extensively regarding alcohol abuse. Patient denies any depression or suicidal thoughts. He reported willingness to go to [facility] when opening is available. In the meantime we'll continue aggressive IV fluid hydration, anti-emetics with IV Zofran as needed, advance diet as tolerated. Continue Ativan per CIWA protocol as needed. Patient should be sober this afternoon.
[2021-02-09] MEDS: ONDANSETRON 4 MG/2 ML VIAL IVP PRN ×3 (09:35→23:07)
[2021-02-09] MEDS ORDERED: ACETAMINOPHEN TAB 325 MG TAB PO PRN (18:10)
[2021-02-09] MEDS: traZODone HCL 50 MG TAB PO SCH (20:28)
[2021-02-10] MEDS: SODIUM CHLORIDE 0.9% 1,000 ML IV SCH (06:18)
[2021-02-10] MEDS: LEVOTHYROXINE 25 MCG TAB PO SCH (06:18)
[2021-02-10 07:50] VITALS: BP 125/80; PULSE 79; RESP 16; TEMP 98.3
--- NOTE | 2021-02-10 08:40 | P.DS ---
Providers Date of admission: 02/09/21 12:50 Expected date of discharge: 02/10/21 Attending physician: Citlaly Melo Primary care physician: Physician Pedraza Hospital Course: This is a 30-year-old male with past medical history significant for underlying seizure disorder and alcohol abuse who presented to the emergency room with alcohol intoxication. Patient was evaluated in the ER and currently placed in observation for further management. Patient was treated with aggressive IV fluid hydration, IV Zofran as needed, vitamins, and Ativan as needed for withdrawal. Patient's overall condition improved. He was complaining of nausea with suspected alcoholic gastritis. He will be discharged home with a prescription for Protonix and Zofran as needed. Patient was counseled extensively regarding alcohol abuse. Patient denies any depression or suicidal thoughts. He reported willingness to go to [facility] when opening is available. Patient was not having any evidence of withdrawal on the day of discharge. Patient Condition at Discharge: Stable Plan - Discharge Summary Discharge Rx Participant: No New Discharge Prescriptions: New Pantoprazole Sodium [Protonix] 40 mg PO DAILY #14 tablet. Ondansetron HCl [Zofran] 4 mg PO Q8H PRN #12 tab PRN Reason: Nausea And Vomiting Continue traZODone HCL 150 mg PO HS Sertraline [Zoloft] 50 mg PO DAILY Levothyroxine Sodium [Synthroid] 25 mcg PO DAILY levETIRAcetam [Keppra] 1,000 mg PO BID Thiamine [Vitamin B-1] 100 mg PO DAILY #14 tab Discharge Medication List Levothyroxine Sodium [Synthroid] 25 mcg PO DAILY 02/08/21 [History] Sertraline [Zoloft] 50 mg PO DAILY 02/08/21 [History] levETIRAcetam [Keppra] 1,000 mg PO BID 02/08/21 [History] traZODone HCL 150 mg PO HS 02/08/21 [History] Ondansetron HCl [Zofran] 4 mg PO Q8H PRN #12 tab 02/10/21 [Rx] Pantoprazole Sodium [Protonix] 40 mg PO DAILY #14 tablet. 02/10/21 [Rx] Thiamine [Vitamin B-1] 100 mg PO DAILY #14 tab 02/10/21 [Rx] Follow up Appointment(s)/Referral(s): Nonstaff,Physician [Primary Care Provider] - 1-2 days Discharge Disposition: HOME SELF-CARE
[2021-02-10] MEDS: SERTRALINE 50 MG TAB PO SCH (08:43)
[2021-02-10] MEDS: levETIRAcetam 500 MG TAB PO SCH (08:44)
[2021-02-10] MEDS: THIAMINE 100 MG TAB PO SCH (08:44)
[2021-02-10] MEDS: ONDANSETRON 4 MG/2 ML VIAL IVP PRN (08:45)
== END 2021-02-10 10:00 | disposition home or self-care (01) | DRG 897 ==
LOC: EC 14:05 → 4SSUR 16:53 → OBSVTOIN 02-09 12:50
PROVIDERS: ADMIT Internal Medicine; ATTEND Internal Medicine
DX: F10.120 Alcohol abuse with intoxication, uncomplicated (principal); K70.10 Alcoholic hepatitis without ascites; G40.909 Epilepsy, unspecified, not intractable, without status epilepticus; Z20.822 Contact with and (suspected) exposure to COVID-19; F32.9 Major depressive disorder, single episode, unspecified; F41.9 Anxiety disorder, unspecified; F17.200 Nicotine dependence, unspecified, uncomplicated; K29.20 Alcoholic gastritis without bleeding; Y90.8 Blood alcohol level of 240 mg/100 ml or more; Z79.890 Hormone replacement therapy; Z79.899 Other long term (current) drug therapy; Z84.0 Family history of diseases of the skin and subcutaneous tissue
CPT/HCPCS: 36415; 80053; 80306; 80320; 83735; 84100; 85025; 87635; 99285

== ENCOUNTER 2021-09-04 20:28 | Emergency (ER) | payer OTHER ==
[2021-09-04] MEDS ORDERED: SODIUM CHLORIDE 0.9% 2,000 ML IV STA (20:32)
[2021-09-04 20:36] VITALS: TEMP 97.9
--- NOTE | 2021-09-04 20:50 | ED ---
General Adult HPI - General Chief complaint: Recheck/Abnormal Lab/Rx Stated complaint: Nausea, withdrawing Time Seen by Provider: 09/04/21 20:32 Source: patient, EMS, RN notes reviewed Mode of arrival: EMS Limitations: no limitations - History of Present Illness Initial comments: Patient is a 31-year-old male presenting from [facility] for alcohol with drawal Patient reports problems with alcohol withdrawal, states that he feels weak, shaky. Patient requested to be seen in emergency department. Patient reports last alcoholic drink was yesterday in patient's words "two pints". patient reports abdominal generalized discomfort and generalized pain 7/10 pain is reported. Patient does have a history of alcohol withdrawal, alcohol abuse. Patient denies any illicit drug use states that he used to use heroin - Related Data Home Medications Medication Instructions Recorded Confirmed Levothyroxine Sodium [Synthroid] 25 mcg PO DAILY 02/08/21 02/08/21 Sertraline [Zoloft] 50 mg PO DAILY 02/08/21 02/08/21 levETIRAcetam [Keppra] 1,000 mg PO BID 02/08/21 02/08/21 traZODone HCL 150 mg PO HS 02/08/21 02/08/21 Previous Rx's Medication Instructions Recorded Ondansetron HCl [Zofran] 4 mg PO Q8H PRN #12 tab 02/10/21 Pantoprazole Sodium [Protonix] 40 mg PO DAILY #14 tablet. 02/10/21 Thiamine [Vitamin B-1] 100 mg PO DAILY #14 tab 02/10/21 Allergies Allergy/AdvReac Type Severity Reaction Status Date / Time No Known Allergies Allergy Verified 09/04/21 20:32 Review of Systems ROS Statement: Those systems with pertinent positive or pertinent negative responses have been documented in the HPI. ROS Other: All systems not noted in ROS Statement are negative. Past Medical History Past Medical History: Seizure Disorder Additional Past Medical History / Comment(s): Alcohol abuse, alcoholic liver dis ease History of Any Multi-Drug Resistant Organisms: None Reported Past Surgical History: Orthopedic Surgery Additional Past Surgical History / Comment(s): right rotator cuff repair Past Anesthesia/Blood Transfusion Reactions: No Reported Reaction Past Psychological History: Anxiety, Depression Smoking Status: Current every day smoker Past Alcohol Use History: Abuse, Daily, Heavy Past Drug Use History: Marijuana - Past Family History Mother Additional Family Medical History / Comment(s): none that he is aware of Father Additional Family Medical History / Comment(s): psoriasis General Exam Limitations: no limitations General appearance: in no apparent distress, anxious Head exam: Present: atraumatic, normocephalic, normal inspection Eye exam: Present: normal appearance, PERRL, EOMI. Absent: scleral icterus, conjunctival injection, periorbital swelling Respiratory exam: Present: normal lung sounds bilaterally. Absent: respiratory distress, wheezes, rales, rhonchi, stridor Cardiovascular Exam: Present: regular rate, normal rhythm, normal heart sounds. Absent: systolic murmur, diastolic murmur, rubs, gallop, clicks GI/Abdominal exam: Present: soft, tenderness. Absent: distended, guarding, rebound, rigid Neurological exam: Present: alert, oriented X3 Skin exam: Present: warm, dry, intact, normal color. Absent: rash Course Vital Signs 09/04/21 09/04/21 09/04/21 20:33 22:14 23:08 Temperature 97.9 F Pulse Rate 59 L 65 66 Respiratory 20 20 18 Rate Blood Pressure 117/89 118/87 112/77 O2 Sat by Pulse 99 99 98 Oximetry Medical Decision Making - Medical Decision Making Patient's lab reveal mild hypomagnesemia, alcoholic hepatitis patient is having no major with [facility] that this time. Patient be discharged back to [facility] . - Lab Data Result diagrams: 09/04/21 20:52 09/04/21 20:52 Lab Results 09/04/21 09/04/21 09/04/21 Range/Units 20:52 20:52 20:52 WBC 4.9 (3.8-10.6) k/uL RBC 3.86 L (4.30-5.90) m/uL Hgb 13.0 (13.0-17.5) gm/dL Hct 39.2 (39.0-53.0) % MCV 101.4 H (80.0-100.0) fL MCH 33.6 (25.0-35.0) pg MCHC 33.1 (31.0-37.0) g/dL RDW 13.3 (11.5-15.5) % Plt Count 329 (150-450) k/uL MPV 7.5 Neutrophils % 66 % Lymphocytes % 24 % Monocytes % 6 % Eosinophils % 2 % Basophils % 1 % Neutrophils # 3.2 (1.3-7.7) k/uL Lymphocytes # 1.2 (1.0-4.8) k/uL Monocytes # 0.3 (0-1.0) k/uL Eosinophils # 0.1 (0-0.7) k/uL Basophils # 0.0 (0-0.2) k/uL Macrocytosis Slight Sodium 134 L (137-145) mmol/L Potassium 3.7 (3.5-5.1) mmol/L Chloride 102 (98-107) mmol/L Carbon Dioxide 27 (22-30) mmol/L Anion Gap 5 mmol/L BUN 5 L (9-20) mg/dL Creatinine 0.51 L (0.66-1.25) mg/dL Est GFR (CKD-EPI)AfAm >90 (>60 ml/min/1.73 sqM) Est GFR (CKD-EPI)NonAf >90 (>60 ml/min/1.73 sqM) Glucose 92 (74-99) mg/dL Plasma Lactic Acid Geo 0.9 (0.7-2.0) mmol/L Calcium 9.3 (8.4-10.2) mg/dL Magnesium 1.5 L (1.6-2.3) mg/dL Total Bilirubin 0.7 (0.2-1.3) mg/dL AST 66 H (17-59) U/L ALT 54 H (4-49) U/L Alkaline Phosphatase 238 H (38-126) U/L Troponin I (0.000-0.034) ng/mL Total Protein 6.9 (6.3-8.2) g/dL Albumin 3.9 (3.5-5.0) g/dL Amylase 49 (30-110) U/L Lipase 96 (23-300) U/L Serum Alcohol <10 mg/dL 09/04/21 Range/Units 23:09 WBC (3.8-10.6) k/uL RBC (4.30-5.90) m/uL Hgb (13.0-17.5) gm/dL Hct (39.0-53.0) % MCV (80.0-100.0) fL MCH (25.0-35.0) pg MCHC (31.0-37.0) g/dL RDW (11.5-15.5) % Plt Count (150-450) k/uL MPV Neutrophils % % Lymphocytes % % Monocytes % % Eosinophils % % Basophils % % Neutrophils # (1.3-7.7) k/uL Lymphocytes # (1.0-4.8) k/uL Monocytes # (0-1.0) k/uL Eosinophils # (0-0.7) k/uL Basophils # (0-0.2) k/uL Macrocytosis Sodium (137-145) mmol/L Potassium (3.5-5.1) mmol/L Chloride (98-107) mmol/L Carbon Dioxide (22-30) mmol/L Anion Gap mmol/L BUN (9-20) mg/dL Creatinine (0.66-1.25) mg/dL Est GFR (CKD-EPI)AfAm (>60 ml/min/1.73 sqM) Est GFR (CKD-EPI)NonAf (>60 ml/min/1.73 sqM) Glucose (74-99) mg/dL Plasma Lactic Acid Geo (0.7-2.0) mmol/L Calcium (8.4-10.2) mg/dL Magnesium (1.6-2.3) mg/dL Total Bilirubin (0.2-1.3) mg/dL AST (17-59) U/L ALT (4-49) U/L Alkaline Phosphatase (38-126) U/L Troponin I <0.012 (0.000-0.034) ng/mL Total Protein (6.3-8.2) g/dL Albumin (3.5-5.0) g/dL Amylase (30-110) U/L Lipase (23-300) U/L Serum Alcohol mg/dL Disposition Clinical Impression: Alcohol abuse, Hypomagnesemia, Alcoholic hepatitis Disposition: HOME SELF-CARE Condition: Stable Additional Instructions: Please return to the Emergency Department if symptoms worsen or any other concerns. Is patient prescribed a controlled substance at d/c from ED?: No Referrals: Nonstaff,Physician [Primary Care Provider] - 1-2 days Time of Disposition: 00:00
[2021-09-04 21:14] LABS: Basophils % (A) 1 %; Eosinophils # (A) 0.1 k/uL (0-0.7); Eosinophils % (A) 2 %; HCT 39.2 % (39.0-53.0); Lymphocytes # (A) 1.2 k/uL (1.0-4.8); Lymphocytes % (A) 24 %; MCH 33.6 pg (25.0-35.0); MCHC 33.1 g/dL (31.0-37.0); MCV 101.4 fL (80.0-100.0); Macrocytosis Slight; Mean Platelet Volume 7.5; Monocytes # (A) 0.3 k/uL (0-1.0); Monocytes % (A) 6 %; Neutrophils # (A) 3.2 k/uL (1.3-7.7); Neutrophils % (A) 66 %; Platelet Count 329 k/uL (150-450); RBC 3.86 m/uL (4.30-5.90); RDW 13.3 % (11.5-15.5); WBC 4.9 k/uL (3.8-10.6)
[2021-09-04 21:23] LABS: ALT 54 U/L (4-49); AST 66 U/L (17-59); African American GFR (CKD) >90 (>60 ml/min/1.73 sqM); Albumin 3.9 g/dL (3.5-5.0); Alcohol <10 mg/dL; Alkaline Phosphatase 238 U/L (38-126); Amylase 49 U/L (30-110); Anion Gap 5 mmol/L; Blood Urea Nitrogen 5 mg/dL (9-20); Calcium 9.3 mg/dL (8.4-10.2); Carbon Dioxide 27 mmol/L (22-30); Chloride 102 mmol/L (98-107); Glucose 92 mg/dL (74-99); Lipase 96 U/L (23-300); Magnesium 1.5 mg/dL (1.6-2.3); Non-African American GFR(CKD) >90 (>60 ml/min/1.73 sqM); Potassium 3.7 mmol/L (3.5-5.1); Sodium 134 mmol/L (137-145); Total Bilirubin 0.7 mg/dL (0.2-1.3); Total Protein 6.9 g/dL (6.3-8.2)
[2021-09-04] MEDS ORDERED: LORazepam 2 MG/ML INJ IV STA (22:06)
[2021-09-04 23:09] VITALS: BP 112/77; PULSE 66; RESP 18
[2021-09-04] MEDS ORDERED: SODIUM CHLORIDE 0.9% 1,000 ML IV ONE (23:35)
== END 2021-09-05 00:38 | disposition home or self-care (01) ==
LOC: EC 20:28
DX: F10.10 Alcohol abuse, uncomplicated (principal); E83.42 Hypomagnesemia; K70.10 Alcoholic hepatitis without ascites; F17.200 Nicotine dependence, unspecified, uncomplicated; G40.909 Epilepsy, unspecified, not intractable, without status epilepticus; Y90.0 Blood alcohol level of less than 20 mg/100 ml; Z79.899 Other long term (current) drug therapy
CPT/HCPCS: 93005; 80053; 82150; 83605; 83690; 83735; 84484; 85025; 99285; 96374; 96361; G0480; J2060; 80320